=== PATIENT | male | born 1960 | race Caucasian/White ===

== ENCOUNTER 2022-07-30 18:33 | Emergency (ER) | payer OTHER ==
[2022-07-30 20:46] LABS: BASOPHIL 0.7 % (0-2); EOSINOPHIL 1.1 % (0-5); HCT 37.3 % (42.0-52.0); HGB 13.6 g/dl (13.2-18.0); LYMPHOCYTE 18.3 % (15-48); MCH 35.7 pg (25.0-31.0); MCHC 36.5 g/dL (32.0-36.0); MCV 97.9 fL (78.0-100.0); MONOCYTE 8.3 % (0-12); MPV 8.8 fL (6.0-9.5); NEUTROPHIL 71.2 % (41-80); NRBC 0; PLT 152 K/uL (150-400); RBC 3.81 M/uL (4.70-6.00); RDW 12.4 % (11.5-14.0); WBC 4.6 K/uL (4.0-10.5)
[2022-07-30 21:25] LABS: ALBUMIN 4.1 g/dL (3.4-5.0); BILIRUBIN - TOTAL 0.6 mg/dL (0.2-1.0); CREATININE 0.67 mg/dL (0.67-1.17); GLOBULIN (CALCULATION) 3.5 g/dL; POTASSIUM 4.1 mmol/L (3.5-5.1); TOTAL PROTEIN 7.6 g/dL (6.4-8.2)
[2022-07-30] MEDS ORDERED: ONDANSETRON ODT4 MG PO (22:22)
[2022-07-30] MEDS ORDERED: PHENERGAN25 M1 PO (22:22)
== END 2022-07-30 22:45 | disposition home or self-care (01) ==
LOC: FER 18:33
PROVIDERS: Emergency Medicine
DX: E86.0 Dehydration (principal); R07.89 Other chest pain; J44.9 Chronic obstructive pulmonary disease, unspecified; I25.10 Atherosclerotic heart disease of native coronary artery without angina pectoris; F17.200 Nicotine dependence, unspecified, uncomplicated; Z79.02 Long term (current) use of antithrombotics/antiplatelets; Z79.82 Long term (current) use of aspirin; Z79.899 Other long term (current) drug therapy
CPT/HCPCS: 36415; 71045; 80053; 84153; 84484; 85025; 93005; J2405; J2550; J7030